=== PATIENT | male | born 1995 | race Caucasian/White ===

== ENCOUNTER 2022-03-18 17:30 | Emergency (ER) | payer SELFPAY ==
[2022-03-18 17:38] VITALS: BP 125/83; PULSE 83; RESP 16; TEMP 36.6; O2SAT 99; BMI 32.1
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
--- NOTE | 2022-03-18 19:02 | PC.NURSE ---
REPORT GIVEN TO [facility].
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
[2022-03-18 20:02] VITALS: BP 144/78; PULSE 88; RESP 18; O2SAT 98
== END 2022-03-18 20:03 | disposition home or self-care (01) ==
PROVIDERS: Emergency Provider Emergency Medicine
DX: S01.01XA Laceration without foreign body of scalp, initial encounter (principal); S01.112A Laceration without foreign body of left eyelid and periocular area, initial encounter; V48.5XXA Car driver injured in noncollision transport accident in traffic accident, initial encounter
CPT/HCPCS: 12002; 12013; 70450; 71250; 72125; 74176; 99283